=== PATIENT | male | born 1980 | race Caucasian/White ===

== ENCOUNTER 2021-01-20 10:52 | Emergency (ER) | payer BC ==
[2021-01-20 11:44] LABS: HEMOGLOBIN 13.7 gm/dl (14.0-17.5); RED BLOOD COUNT 4.72 M/UL (4.20-5.50); WHITE BLOOD COUNT 5.7 K/UL (4.5-11.0)
[2021-01-20 12:12] LABS: BUN/CREATININE RATIO 19 (0-10)
[2021-01-20] MEDS ORDERED: ZOFRAN4 MG PO (14:27)
== END 2021-01-20 14:35 | disposition home or self-care (01) ==
LOC: ER1 10:52
PROVIDERS: Physician Assistant Medical
DX: K76.0 Fatty (change of) liver, not elsewhere classified (principal); E78.5 Hyperlipidemia, unspecified
CPT/HCPCS: 71045; 80053; 81001; 82550; 82553; 83874; 84484; 85025; 85610; 93005; 99284; Q9967